=== PATIENT | female | born 1985 | race Hispanic/Latino ===

== ENCOUNTER 2017-11-25 11:00 | Inpatient (IN) | payer BC ==
[~2017-11-25] VITALS: Ht 154.9 cm; Wt 78.5 kg
[2017-11-25 11:38] LABS: APPEARANCE,URINE Cloudy (CLEAR); BILIRUBIN,URINE Small (NEGATIVE); COLOR,URINE Dark Yellow (YELLOW); GLUCOSE, URINE (UA) Negative (NEGATIVE); KETONES,URINE 15 mg/dL (NEGATIVE); LEUKOCYTE ESTERASE ,URINE Negative (NEGATIVE); NITRATE,URINE Negative (NEGATIVE); OCCULT BLOOD,URINE Negative (NEGATIVE); PH,URINE 7.5 (5.0-8.0); PROTEIN,URINE POS 1+ (NEGATIVE)
[2017-11-25] MEDS ORDERED: LACTATED RINGERS 1000ML 1,000 ML IV PRN (11:41)
[2017-11-25] MEDS ORDERED: MAGNESIUM SULFATE 1,000 ML IV PRN (11:41)
[2017-11-25] MEDS ORDERED: MAGNESIUM 4GM PREMIX 100ML 100 ML IV SCH (11:45)
[2017-11-25] MEDS ORDERED: CALCIUM GLUCONATE 1 GM/10 ML VIAL IV PRN (11:45)
[2017-11-25] MEDS ORDERED: MAGNESIUM SULFATE 1,000 ML IV ONE (11:47)
[2017-11-25] MEDS ORDERED: MAGNESIUM 4GM PREMIX 100ML 100 ML IV ONE (11:48)
[2017-11-25] MEDS ORDERED: AMPICILLIN 2GM+NS 100ML 100 ML IV ONE (11:49)
[2017-11-25] MEDS ORDERED: DEXAMETHASONE SOD PHOSPHATE 4 MG/ML 1ML VIAL ONE (11:49)
[2017-11-25 11:56] LABS: BACTERIA,URINE Rare /HPF (None Seen); MUCUS,URINE Moderate LPF (None Seen); RBC,URINE 0-1 /HPF (0-1); WBC,URINE 0-1 /HPF (0-1)
[2017-11-25] MEDS ORDERED: AMPICILLIN 2GM+NS 100ML 100 ML IV SCH (12:00)
[2017-11-25 12:07] LABS: HEMATOCRIT 34.1 % (36-48); MEAN CORPUSCULAR HEMOGLOBIN 31.4 pg (27.0-33.0); MEAN CORPUSCULAR HGB CONC 34.7 g/dL (32.0-36.0); MEAN CORPUSCULAR VOLUME 90.6 fL (79-99); PLATELET COUNT (AUTO) 301 K/uL (130-400); RED BLOOD CELL COUNT(AUTO) 3.77 MIL/uL (4.00-5.50); RED CELL DISTRIBUTION WIDTH 13.2 % (11.0-15.5); WHITE BLOOD COUNT (AUTO) 13.4 K/uL (4.8-10.8)
[2017-11-25] MEDS ORDERED: PROMETHAZINE HCL 25 MG/ML 1ML AMPULE IM ONE (12:27)
[2017-11-25] MEDS ORDERED: MEPERIDINE-PF 50 MG/ML SYG ONE (12:28)
[2017-11-25] MEDS ORDERED: MEPERIDINE-PF 50 MG/ML SYG IVP ONE (13:30)
[2017-11-25] MEDS ORDERED: PROMETHAZINE HCL 25 MG/ML 1ML AMPULE IM SCH (13:30)
[2017-11-25 15:26] LABS: AMPHET/METH SCREEN,URINE NEGATIVE (NEGATIVE); BARBITURATE SCREEN, URINE NEGATIVE (NEGATIVE); BENZODIAZEPINES SCREEN,URINE NEGATIVE (NEGATIVE); CANNABINOID SCREEN,URINE NEGATIVE (NEGATIVE); COCAINE SCREEN,URINE NEGATIVE (NEGATIVE); OPIATE SCREEN,URINE NEGATIVE (NEGATIVE); PHENCYCLIDINE SCREEN,URINE NEGATIVE (NEGATIVE)
[2017-11-25] MEDS: DEXAMETHASONE SOD PHOSPHATE 4 MG/ML 1ML VIAL IM SCH ×2 (17:59→23:45)
[2017-11-25] MEDS: AMPICILLIN 1GM+NS 50ML 50 ML IV SCH ×2 (20:19→23:44)
[2017-11-26] MEDS: AMPICILLIN 1GM+NS 50ML 50 ML IV SCH ×6 (03:46→23:58)
[2017-11-26] MEDS: DEXAMETHASONE SOD PHOSPHATE 4 MG/ML 1ML VIAL IM SCH (05:44)
[2017-11-26 06:16] LABS: HEPATITIS Bs ANTIGEN SCREEN P Negative (Negative)
[2017-11-26 08:15] LABS: RAPID PLASMA REAGIN NONREACTIVE (NONREACTIVE)
[2017-11-26 13:57] VITALS: BP 101/54
[2017-11-26 15:16] VITALS: BP 107/56
[2017-11-26] MEDS ORDERED: METF500T6 PO (17:56)
[2017-11-26 19:32] VITALS: BP 109/56
[2017-11-27 00:09] VITALS: BP 95/49
[2017-11-27] MEDS: AMPICILLIN 1GM+NS 50ML 50 ML IV SCH ×3 (04:24→08:15)
[2017-11-27 04:36] VITALS: BP 99/52
[2017-11-27] MEDS: DEXAMETHASONE SOD PHOSPHATE 4 MG/ML 1ML VIAL IM SCH (05:45)
[2017-11-27 07:19] VITALS: BP 97/52
[2017-11-27 11:22] VITALS: BP 102/45
== END 2017-11-27 12:20 | disposition home or self-care (01) | DRG 778 ==
LOC: EDH 11:00 → LDH 11:12 → OBSVTOIN 11:41 → LDH 14:26 → WSH 11-26 13:55
PROVIDERS: ADMIT Specialist; ATTEND Specialist
DX: O60.02 Preterm labor without delivery, second trimester (principal); Z3A.23 23 weeks gestation of pregnancy
CPT/HCPCS: 36415; 76805; 80305; 81001; 83735; 85027; 86592; 86701; 86850; 86900; 86901; 87340; 87390; A4314; J0290; J1100; J2175; J2550; J3475